=== PATIENT | female | born 1965 | race Caucasian/White ===

== ENCOUNTER 2020-05-06 12:22 | Emergency (ER) | payer OTHER ==
[~2020-05-06] VITALS: Ht 167.6 cm; Wt 109.1 kg
[2020-05-06 12:32] VITALS: BP 184/93; PULSE 52; TEMP 97.9
[2020-05-06 13:30] LABS: STREP SCREEN NEGATIVE
== END 2020-05-06 14:04 | disposition home or self-care (01) ==
LOC: COL.ER 12:22
PROVIDERS: Physician Assistant
DX: J02.8 Acute pharyngitis due to other specified organisms (principal)

== ENCOUNTER 2023-10-22 11:04 | Day surgery (SDC) | payer OTHER ==
[~2023-10-22] VITALS: Ht 167.6 cm; Wt 81.0 kg
[2023-10-22] VITALS (11 sets, daily range): BP systolic 127–150; BP diastolic 82–96; PULSE 42–62; TEMP 97.6–98
[~2023-10-22 11:04] MED LIST: BIOTIN10000 MC1 PO; CADUET 10 MG-401 TAB PO; FOLIC ACID0.8 MG PO; IRON TABLETS325 MG PO; LIPITOR 40MG TA40 MG PO; MULTIPLE VITAMI1 CAP PO; NORVASC 5MG5 MG/TAB PO; PLAVIX 75MG TAB75 MG PO; PREDNISONE20 MG PO; VITAMIN B122500 MCG SL; XALATAN EYE DROPS OU
[2023-10-22] MEDS ORDERED: 1/2 NS 1,000 ML IV SCH (11:30)
[2023-10-22] MEDS ORDERED: LIPITOR 80MG80 MG PO (11:51)
[2023-10-22 11:59] LABS: HEMATOCRIT 37.4 % (37.0-47.0); HEMOGLOBIN 12.5 g/dl (12.5-16.0); MEAN CELL VOLUME 94 fl (80.0-100.0); MEAN CORPUSCULAR HEMOGLOBIN 31 pg (27-31); MEAN CORPUSCULAR HGB CONC 33 g/dl (33.0-37.0); MEAN PLATELET VOLUME 9.7 fl (7.4-10.4); PLATELET COUNT 239 K/mm3 (130-400); RED BLOOD COUNT 3.99 M/mm3 (4.10-5.30); REDCELL DISTRIBUTION WIDTH-CV 12.3 % (11.5-14.5)
[2023-10-22 12:03] LABS: INR 1.1 (0.8-3.0); PROTHROMBIN TIME 12.3 SECONDS (9.7-12.8)
[2023-10-22 12:07] LABS: CALCIUM 9.5 mg/dL (8.4-10.2); CREATININE, serum 0.8 mg/dL (0.57-1.11); POTASSIUM 3.9 mEq/L (3.5-4.5)
[2023-10-22] MEDS ORDERED: NS 1,000 ML IV.SOLN. IR SCH (13:38)
[2023-10-22] MEDS ORDERED: Midazolam 2 MG/2 ML VIAL IV SCH (13:58)
[2023-10-22] MEDS ORDERED: fentaNYL 50 MCG/ML 2 ML VIAL IV SCH (13:59)
--- NOTE | 2023-10-22 14:01 | NUR ---
See merge for all medication, assessment,intervention, and vital sign times.
--- NOTE | 2023-10-22 14:47 | NUR ---
Bedside report completed with Kelly CAMPOS. Call light within reach, telemetry box in place, site intact, fluids clamped off. Kelly CAMPOS denies questions/concerns at this time.
--- NOTE | 2023-10-22 14:53 | NUR ---
Patient arrived to the medical unit, alert and oriented x 4, VSS 148/91, HR60 O2 SAT 100% RA, Resp 18 T 98. 2 sites, CDI. Gauze covering.
--- NOTE | 2023-10-22 15:30 | NUR ---
Call placed to Dr. Sterling to inform about pt admission is complete, including med rec. Awaiting for further orders.
--- NOTE | 2023-10-22 17:21 | NUR ---
RFA IV access discontinued since hematoma and leaking present. IV fluids on hold.
--- NOTE | 2023-10-22 18:00 | NUR ---
Call placed to [facility], since Hallie asked to call him, about the medications for patient. G[facility] asked to call Hallie back. No answer.
--- NOTE | 2023-10-22 21:02 | NUR ---
PATIENT IS SITTING UP IN BED WATCHING TV. STATES AT REST HER POST-OP PAIN IN THE LEFT CHEST IS MORE OF AN ACHE BUT DOES BECOME A CONSTANT THROBBING PAIN WHEN SHE MOVES THROUGHOUT THE ROOM. DENIES ANY NAUSEA OR SHORTNESS OF BREATH. CALL LIGHT IS WITHIN REACH. BED LOCKED AND IN LOW POSITION.
--- NOTE | 2023-10-22 23:25 | NUR ---
CALLED AND DISCUSSED PATIENT HOME MEDS WITH DR. CAMARENA, BLAKEAYED TO ORDER PATIENT'S AMLODIPINE AND ATORVASTATIN FOR THE AM.
[2023-10-23 01:06] VITALS: BP_SYST 127
--- NOTE | 2023-10-23 01:30 | NUR ---
DISCUSSED WITH NIGHT HOSPITALIST AND WEB CONTENT EXECUTIVE, AND PATIENT IS CURRENTLY TOLERATING PO FLUIDS WELL AND HER IV IS KEEPING HER AWAKE DESPITE EFFORTS FROM NURSING STAFF. IV FLUIDS ARE STOPPED FOR THE NIGHT
[2023-10-23 03:43] VITALS: BP 123/81; PULSE 58; TEMP 97.2
[2023-10-23 05:02] VITALS: BP_SYST 123
--- NOTE | 2023-10-23 08:06 | NUR ---
PATIENT SITTING UP IN CHAIR. ALERT AND ORIENTED. THIS NURSE INTEROGATED PACEMAKER. INCISION TO LEFT CHEST IS CDI. PATIENT DENIES PAIN OR DISCOMFORT AT REST. ALL NEEDS MET AT THIS TIME.
[2023-10-23 08:24] VITALS: BP 112/78; PULSE 60; TEMP 97.8
[2023-10-23] MEDS ORDERED: Atorvastatin 80 MG TAB PO SCH (09:00)
[2023-10-23] MEDS ORDERED: amLODIPine 5 MG TAB PO SCH (09:00)
[2023-10-23 09:09] VITALS: BP_SYST 112
--- NOTE | 2023-10-23 09:17 | NUR ---
Social work student met with patient to discuss discharge planning. Patient lives in [place] with son, Navdeep, but is moving to [place] on November 01. Patient will live with Melvin (ph# [phone]) once moved to [place]. Patient sees Dr. Francesca Monahan for primary care and gets medication from [facility] in with no difficulties. Patient has [facility] for insurance. Patient uses no DME and is independent with [facility]. Patient does not have DPOA and is not interested in completing one at this time. Patient plans to return home with son at time of discharge. Discharge plan: home with son
[2023-10-23] MEDS ORDERED: CLEOCIN HCL300 MG PO (10:49)
--- NOTE | 2023-10-23 11:13 | NUR ---
THIS RN PROVIDED PATIENT WITH DISCHARGE INSTRUCTIONS AND EDUCATION. ALL QUESTIONS ANSWERED. INT TO LEFT AC DISCONTINUED. NO REDNESS, EDEMA, OR DRAINAGE NOTED. COVERED WITH GAUZE AND TAPE. PATIENT GETTING DRESSED.
--- NOTE | 2023-10-23 11:43 | NUR ---
PATIENT ESCORTED OFF UNIT BY THIS RN AT APPROX 1140. ALL BELONGINGS WITH PATIENT.
== END 2023-10-23 11:40 | disposition home or self-care (01) ==
LOC: MEDICAL 11:04 → COL.CAR 11:04 → MEDICAL 14:45 → COL.CAR 10-23 11:40
PROVIDERS: Internal Medicine Interventional Cardiology
DX: R00.1 Bradycardia, unspecified (principal); R53.83 Other fatigue; R40.0 Somnolence; I49.5 Sick sinus syndrome; I10 Essential (primary) hypertension; Z95.818 Presence of other cardiac implants and grafts; Z79.02 Long term (current) use of antithrombotics/antiplatelets; Z87.891 Personal history of nicotine dependence
CPT/HCPCS: OP; C1785; C1894; C1898; J0665-JZ; J2250; J3010; J3370; J7030; J7050